=== PATIENT | male | born 1960 | race Caucasian/White ===

== ENCOUNTER 2016-03-06 08:50 | Emergency (ER) | payer SELFPAY ==
[~2016-03-06 08:50] MED LIST: METOCLOPRAMIDE 10 MG TAB PO SCH
[2016-03-06] MEDS ORDERED: NS 1,000 ML IV ONE ×3 (08:56→11:00)
[2016-03-06] MEDS ORDERED: ONDANSETRON 4 MG/2 ML VIAL IVP ONE (08:56)
--- NOTE | 2016-03-06 08:59 | EDPHY ---
H & P Time Seen by Provider: 03/06/16 08:56 HPI/ROS: CHIEF COMPLAINT: Flu HISTORY OF PRESENT ILLNESS: The patient is a 55-year-old homeless man who comes to the emergency department by EMS complaining of flu. He states that for the last 2 days he has had body aches, headaches, fevers, no nausea, vomiting and diarrhea. He does not have any rashes. He denies abdominal pain. He denies chest pain or shortness of breath. He called an ambulance today because the vomiting and diarrhea were concerning him for dehydration. REVIEW OF SYSTEMS: Constitutional: See HPI EENTM: denies: blurred vision, double vision, nose congestion Respiratory: denies: cough, shortness of breath Cardiac: denies: chest pain, irregular heart rate, lightheadedness, palpitations Gastrointestinal/Abdominal: denies: abdominal pain, diarrhea, nausea, vomiting, blood streaked stools Genitourinary: See HPI Musculoskeletal: denies: joint pain, muscle pain Skin: denies: lesions, rash, jaundice, bruising Neurological: denies: headache, numbness, paresthesia, tingling, dizziness, weakness Hematologic/Lymphatic: denies: blood clots, easy bleeding, easy bruising Immunologic/allergic: denies: HIV/AIDS, transplant EXAM: GENERAL: Well-appearing, well-nourished and in no acute distress. HEAD: Atraumatic, normocephalic. EYES: Pupils equal round and reactive to light, extraocular movements intact, sclera anicteric, conjunctiva are normal. ENT: TMs normal, nares patent, oropharynx clear without exudates. Moist mucous membranes. NECK: Normal range of motion, supple without lymphadenopathy or JVD. LUNGS: Breath sounds clear to auscultation bilaterally and equal. No wheezes rales or rhonchi. HEART: Regular rate and rhythm without murmurs, rubs or gallops. ABDOMEN: Soft, nontender, normoactive bowel sounds. No guarding, no rebound. No masses appreciated. BACK: No CVA tenderness, no spinal tenderness, step-offs or deformities EXTREMITIES: Normal range of motion, no pitting or edema. No clubbing or cyanosis. NEUROLOGICAL: Cranial nerves II through XII grossly intact. Normal speech, normal gait. 5/5 strength, normal movement in all extremities, normal sensation PSYCH: Normal mood, normal affect. SKIN: Warm, dry, normal turgor, no visible rashes or lesions. Source: Patient Exam Limitations: No limitations - Medical/Surgical History Hx Asthma: No Hx Chronic Respiratory Disease: No Hx Diabetes: No Hx Cardiac Disease: No Hx Alcoholism: Yes Hx HIV/AIDS: No Hx Splenectomy or Spleen Trauma: No - Family History Significant Family History: Hypertension - Social History Smoking Status: Current some day smoker Alcohol Use: Heavy Drug Use: Marijuana Constitutional: Initial Vital Signs Temperature (C) 37.7 C 03/06/16 09:04 Heart Rate 82 03/06/16 09:04 Respiratory Rate 16 03/06/16 09:04 Blood Pressure 148/86 H 03/06/16 09:04 O2 Sat (%) 95 03/06/16 09:04 O2 Delivery Mode Room Air O2 (L/minute) 2 Allergies/Adverse Reactions: No Known Allergies Allergy (Unverified 03/06/16 09:16) Home Medications: Medication Instructions Recorded Metoclopramide [Reglan 10 mg tab 10 mg PO BID PRN #10 tab 03/06/16 (RX)] Medical Decision Making ED Course/Re-evaluation: 11:00 a.m. the patient is feeling somewhat better. He states that the nausea is improved but he still is a headache and body aches. Treat him with headache medicine and continue to hydrate. His abdominal exam remains benign. His neurologic exam is normal. 12:30 p.m. the patient is feeling much better. He is requesting we feel his regular prescription here. We discussed indications for returning. Differential Diagnosis: Partial list of the Differential diagnosis considered include but were not limited to; dehydration, nausea, vomiting, diarrhea, flu, and although unlikely based on the history and physical exam, I also considered sepsis, appendicitis, diverticulitis, meningitis. I discussed these differential diagnoses and the plan with the patient as well as the usual and expected course. The patient understands that the diagnosis is provisional and that in medicine we are not always correct and that further workup is often warranted. Usual and customary warnings were given. All of the patient's questions were answered. The patient was instructed to return to the emergency department should the symptoms at all worsen or return, otherwise to followup with the physician as we discussed. - Data Points Laboratory Results: Laboratory Results 03/06/16 09:00 03/06/16 09:00 03/06/16 09:00 WBC 11.05 H 10^3/uL (3.80-9.50) RBC 5.12 10^6/uL (4.40-6.38) Hgb 16.2 g/dL (13.7-17.5) Hct 46.2 % (40.0-51.0) MCV 90.2 fL (81.5-99.8) MCH 31.6 pg (27.9-34.1) MCHC 35.1 g/dL (32.4-36.7) RDW 12.7 % (11.5-15.2) Plt Count 156 10^3/uL (150-400) MPV 9.7 fL (8.7-11.7) Neut % (Auto) 85.3 H % (39.3-74.2) Lymph % (Auto) 6.5 L % (15.0-45.0) [place] % (Auto) 7.3 % (4.5-13.0) Eos % (Auto) 0.0 L % (0.6-7.6) Baso % (Auto) 0.4 % (0.3-1.7) Nucleat RBC Rel Count 0.0 % (0.0-0.2) Absolute Neuts (auto) 9.43 H 10^3/uL (1.70-6.50) Absolute Lymphs (auto) 0.72 L 10^3/uL (1.00-3.00) Absolute Monos (auto) 0.81 H 10^3/uL (0.30-0.80) Absolute Eos (auto) 0.00 L 10^3/uL (0.03-0.40) Absolute Basos (auto) 0.04 10^3/uL (0.02-0.10) Absolute Nucleated RBC 0.00 10^3/uL (0-0.01) Immature Gran % 0.5 % (0.0-1.1) Immature Gran # 0.05 10^3/uL (0.00-0.10) Sodium 137 mEq/L (134-144) Potassium 4.3 mEq/L (3.5-5.2) Chloride 102 mEq/L (97-110) Carbon Dioxide 22 mEq/l (22-31) Anion Gap 13 mEq/L (8-16) BUN 15 mg/dL (7-23) Creatinine 1.3 mg/dL (0.7-1.3) Estimated GFR 58 Glucose 116 H mg/dL (70-100) Calcium 8.9 mg/dL (8.5-10.4) Total Bilirubin 1.2 mg/dL (0.1-1.4) Conjugated Bilirubin 0.2 mg/dL (0.0-0.5) Unconjugated Bilirubin 1.0 mg/dL (0.0-1.1) AST 46 IU/L (17-59) ALT 39 IU/L (21-72) Alkaline Phosphatase 84 IU/L (38-126) Total Protein 7.2 g/dL (6.3-8.2) Albumin 4.1 g/dL (3.5-5.0) Lipase 136.0 IU/L (23-300) Influenza Typ A,B (DFA) NEGATIVE FOR FLU (NEGATIVE) Medications Given: Discontinued Medications Acetaminophen (Tylenol) 650 mg PO EDNOW ONE Stop: 03/06/16 11:22 Last Admin: 03/06/16 11:24 Dose: 650 mg Sodium Chloride (Ns) 1,000 mls @ 0 mls/hr IV ONCE ONE PRN Reason: Wide Open Stop: 03/06/16 08:57 Last Admin: 03/06/16 09:04 Dose: 1,000 mls Sodium Chloride (Ns) 1,000 mls @ 0 mls/hr IV ONCE ONE PRN Reason: Wide Open Stop: 03/06/16 08:57 Last Admin: 03/06/16 09:23 Dose: 1,000 mls Sodium Chloride (Ns) 1,000 mls @ 0 mls/hr IV ONCE ONE PRN Reason: Wide Open Stop: 03/06/16 11:01 Last Admin: 03/06/16 11:13 Dose: 1,000 mls Metoclopramide HCl (Reglan Injection) 10 mg IVP EDNOW ONE Stop: 03/06/16 11:01 Last Admin: 03/06/16 11:13 Dose: 10 mg Ondansetron HCl (Zofran) 8 mg IVP EDNOW ONE Stop: 03/06/16 08:57 Last Admin: 03/06/16 09:23 Dose: 8 mg Departure - Departure Disposition: Home, Routine, Self-Care Clinical Impression: Nausea vomiting and diarrhea, Body aches, Dehydration Condition: Fair Instructions: Acute Nausea and Vomiting (ED), Dehydration (ED), Acute Diarrhea (ED) Referrals: NONE *PRIMARY CARE P,. [Primary Care Provider] - As per Instructions Prescriptions: Metoclopramide [Reglan 10 mg tab (RX)] 10 mg PO BID PRN #10 tab PRN Reason: Headache
[2016-03-06 09:06] VITALS: RESP 16; TEMP 99.9
[2016-03-06 09:10] LABS: % IMMATURE GRANULYOCYTES 0.5 % (0.0-1.1); ABSOLUTE IMMATURE GRANULOCYTES 0.05 10^3/uL (0.00-0.10); ADD DIFF? NO; ADD MORPH? NO; ADD SCAN? NO; ATYPICAL LYMPHOCYTE FLAG 0 (0-99); FRAGMENT RBC FLAG 0 (0-99); HEMATOCRIT 46.2 % (40.0-51.0); HEMOGLOBIN 16.2 g/dL (13.7-17.5); LEFT SHIFT FLG 10 (0-99); LIPEMIA HEMOLYSIS FLAG 90 (0-99); MEAN CELL HEMOGLOBIN 31.6 pg (27.9-34.1); MEAN CELL HEMOGLOBIN CONCENTR. 35.1 g/dL (32.4-36.7); MEAN CELL VOLUME 90.2 fL (81.5-99.8); MEAN PLATELET VOLUME 9.7 fL (8.7-11.7); PLATELET CLUMPS FLAG 10 (0-99); PLATELET COUNT 156 10^3/uL (150-400); RED BLOOD CELL COUNT 5.12 10^6/uL (4.40-6.38); RED CELL DISTRIBUTION WIDTH 12.7 % (11.5-15.2)
[2016-03-06 09:31] LABS: ALANINE AMINOTRANSFERASE 39 IU/L (21-72); ALBUMIN 4.1 g/dL (3.5-5.0); ALKALINE PHOSPHATASE 84 IU/L (38-126); ANION GAP 13 mEq/L (8-16); ASPARTATE AMINOTRANSFERASE 46 IU/L (17-59); BILIRUBIN,TOTAL 1.2 mg/dL (0.1-1.4); BILIRUBIN-CONJUGATED 0.2 mg/dL (0.0-0.5); CALCIUM 8.9 mg/dL (8.5-10.4); CARBON DIOXIDE 22 mEq/l (22-31); CHLORIDE 102 mEq/L (97-110); CREATININE 1.3 mg/dL (0.7-1.3); GLOMERULAR FILTRATION RATE 58; GLUCOSE 116 mg/dL (70-100); POTASSIUM 4.3 mEq/L (3.5-5.2); SODIUM 137 mEq/L (134-144); TOTAL PROTEIN 7.2 g/dL (6.3-8.2)
[2016-03-06 10:25] VITALS: O2SAT 96
[2016-03-06] MEDS ORDERED: METOCLOPRAMIDE 10 MG/2 ML VIAL IVP ONE (11:00)
[2016-03-06] MEDS ORDERED: ACETAMINOPHEN 325 MG TAB PO ONE (11:21)
[2016-03-06 12:43] VITALS: BP 106/68; PULSE 82
== END 2016-03-06 12:57 | disposition home or self-care (01) ==
DX: R11.2 Nausea with vomiting, unspecified (principal); R19.7 Diarrhea, unspecified; E86.0 Dehydration; F17.200 Nicotine dependence, unspecified, uncomplicated; R52 Pain, unspecified
CPT/HCPCS: 96374; J2405; J2765